=== PATIENT | female | born 1970 | race American Indian/Alaskan Native ===

== ENCOUNTER 2017-11-21 10:34 | Emergency (ER) | payer BC ==
[2017-11-21 12:11] VITALS: BP 112/60
[2017-11-21] MEDS ORDERED: ASPIRIN PO ONE (12:11)
[2017-11-21 12:37] LABS: Mean Corpuscular HGB Conc 27 % (30-34); Platelet Count 311 K/mm3 (140-440); Red Blood Count 4.79 M/mm3 (3.65-5.03)
[2017-11-21 12:39] LABS: Hematocrit 25.9 % (30.3-42.9); Mean Corpuscular Volume 54 fl (79-97)
[2017-11-21 12:40] LABS: Mean Corpuscular Hemoglobin 15 pg (28-32); Red Cell Distribution Width 20.9 % (13.2-15.2)
[2017-11-21 14:32] LABS: Anisocytosis 2+; Band Neutrophils # (Manual) 0.1 K/mm3; Hypochromasia 3+; Total Cells Counted 100
[2017-11-21 14:33] LABS: Ovalocytes 1+; Platelet Estimate Consistent w Auto; Target Cells Few
[2017-11-21 14:34] LABS: BUN/Creatinine Ratio 10; Blood Urea Nitrogen 8 mg/dL (7-17); Calcium 8.6 mg/dL (8.4-10.2); Hemolysis Index 8
== END 2017-11-21 14:30 | disposition left against medical advice (07) ==
LOC: ED 10:34
DX: R07.9 Chest pain, unspecified (principal); Z53.21 Procedure and treatment not carried out due to patient leaving prior to being seen by health care provider
CPT/HCPCS: 36415; 80048; 84484; 85007; 85025; 93005; 93010

== ENCOUNTER 2018-06-21 22:29 | Emergency (ER) | payer BC ==
[2018-06-22 00:04] LABS: Basophils # (Auto) 0.1 K/mm3 (0.0-0.1); Basophils % (Auto) 0.5 % (0.0-1.8); Eosinophils # (Auto) 0.1 K/mm3 (0.0-0.4); Eosinophils % (Auto) 0.7 % (0.0-4.3); Lymphocytes # (Auto) 1.3 K/mm3 (1.2-5.4); Mean Corpuscular HGB Conc 27 % (30-34); Monocytes % (Auto) 9.2 % (0.0-7.3); Platelet Count 275 K/mm3 (140-440); Red Blood Count 4.37 M/mm3 (3.65-5.03)
[2018-06-22 00:12] LABS: Hematocrit 24.2 % (30.3-42.9); Hemoglobin 6.6 gm/dl (10.1-14.3); Mean Corpuscular Hemoglobin 15 pg (28-32); Mean Corpuscular Volume 55 fl (79-97)
[2018-06-22 00:13] LABS: Red Cell Distribution Width 21.3 % (13.2-15.2)
[2018-06-22 00:20] LABS: Alanine Aminotransferase 7 units/L (7-56); Albumin 3.9 g/dL (3.9-5); BUN/Creatinine Ratio 14; Blood Urea Nitrogen 11 mg/dL (7-17); Calcium 8.8 mg/dL (8.4-10.2); Hemolysis Index 0; Lipase 18 units/L (13-60)
[2018-06-22 00:27] LABS: Amorphous Crystals,Urine Few; Bacteria,Urine 3+ /HPF (Negative); Bilirubin,Urine NEG (Negative); Blood,Urine SM (Negative); Color,Urine Yellow (Yellow); Mucus,Urine FEW /HPF; Urobilinogen,Urine < 2.0 mg/dL (<2.0)
[2018-06-22 00:33] LABS: WBC,Urine > 182.0 /HPF (0.0-6.0)
[2018-06-22] MEDS ORDERED: MORPHINE IV ONE (01:11)
[2018-06-22] MEDS ORDERED: ZOFRAN IV ONE (01:11)
[2018-06-22] MEDS ORDERED: ROCEPHIN/NS 1 GM/50 ML 1 GM/50 ML BAG IV ONE (01:11)
[2018-06-22] MEDS ORDERED: NACL 0.9% 1000 ML 1,000 ML IV ONE (01:11)
--- NOTE | 2018-06-22 01:15 | Emergency Department Report ---
ED Abdominal Pain HPI - General Chief Complaint: Abdominal Pain Stated Complaint: SEVERE STOMACH PAIN Time Seen by Provider: 06/22/18 01:06 Source: patient Mode of arrival: Ambulatory Limitations: No Limitations - History of Present Illness Initial Comments: Patient is a 47-year-old female with no significant past medical history. Patient presented to the ER complaining of right lower quadrant abdominal pain for the last 3 days associated with his nausea. Patient stated that she had appendectomy when she was 5 years old. Patient denied any fever, diarrhea or vomiting. MD Complaint: abdominal pain Location: RLQ, suprapubic Radiation: none Migration to: no migration Severity scale (0 -10): 7 Quality: sharp Consistency: constant - Related Data Home Medications Medication Instructions Recorded Confirmed Last Taken No Known Home Medications [No 01/15/15 01/15/15 Unknown Reported Home Medications] Allergies Allergy/AdvReac Type Severity Reaction Status Date / Time No Known Allergies Allergy Verified 01/15/15 10:10 ED Review of Systems ROS: Stated complaint: SEVERE STOMACH PAIN Other details as noted in HPI Comment: All other systems reviewed and negative Constitutional: denies: chills, fever Respiratory: denies: cough, orthopnea, shortness of breath, SOB with exertion, SOB at rest, wheezing Cardiovascular: denies: chest pain, palpitations, dyspnea on exertion Gastrointestinal: abdominal pain, nausea. denies: vomiting, diarrhea, constipation, hematemesis, hematochezia Genitourinary: frequency Musculoskeletal: denies: back pain Neurological: denies: headache, weakness, numbness, paresthesias, confusion, abnormal gait ED Past Medical Hx - Past Medical History Hx Headaches / Migraines: Yes - Surgical History Hx Appendectomy: Yes - Social History Smoking Status: Never Smoker Substance Use Type: None - Medications Home Medications: Home Medications Medication Instructions Recorded Confirmed Last Taken Type No Known Home Medications [No 01/15/15 01/15/15 Unknown History Reported Home Medications] ED Physical Exam - General Limitations: No Limitations General appearance: alert, in no apparent distress - Head Head exam: Present: atraumatic, normocephalic, normal inspection - Eye Eye exam: Present: normal appearance - ENT ENT exam: Present: normal exam, normal orophraynx, mucous membranes moist - Neck Neck exam: Present: normal inspection, full ROM. Absent: tenderness, meningismus - Respiratory Respiratory exam: Present: normal lung sounds bilaterally - Cardiovascular Cardiovascular Exam: Present: regular rate, normal rhythm, normal heart sounds - GI/Abdominal GI/Abdominal exam: Present: soft, tenderness (right lower quadrant tenderness), normal bowel sounds. Absent: distended, guarding, rebound, rigid, organomegaly , mass, bruit, pulsatile mass, hernia - Extremities Exam Extremities exam: Present: normal inspection, full ROM, normal capillary refill. Absent: tenderness, pedal edema, joint swelling, calf tenderness - Back Exam Back exam: Present: normal inspection, full ROM. Absent: tenderness, CVA tenderness (R), CVA tenderness (L), muscle spasm, paraspinal tenderness, vertebral tenderness - Neurological Exam Neurological exam: Present: alert, oriented X3, CN II-XII intact, normal gait, reflexes normal - Skin Skin exam: Present: warm, intact, normal color ED Course Vital Signs 06/21/18 06/22/18 23:11 02:42 Temperature 98.8 F Pulse Rate 88 Respiratory 18 Rate Blood Pressure 126/72 [Right] O2 Sat by Pulse 97 100 Oximetry ED Medical Decision Making - Lab Data Result diagrams: 06/21/18 23:37 06/21/18 23:37 - Radiology Data Radiology results: report reviewed Referring Physician: ARABELLA GREENWOOD Patient Name: MARJORIE CONLEY Date of : 1970 Sex: Female Report Date: 2018-06-22 Report Status: [place] [address] Cat Scan Report Signed Patient: MARJORIE CONLEY MR#: [id number] : 1970 Acct:[id number] Age/Sex: 47 / F ADM Date: 06/21/18 Loc: ED Attending Dr: Ordering Physician: ARABELLA GREENWOOD Date of Service: 06/22/18 Procedure(s): CT abdomen pelvis w con Accession Number(s): [id number] cc: ARABELLA GREENWOOD FINAL REPORT EXAM: CT ABDOMEN PELVIS W CON HISTORY: abdominal pain TECHNIQUE: CT evaluation performed of the abdomen and pelvis following IV and oral contrast administration. Additional axial delayed images were acquired. Coronal and sagittal imaging also provided for interpretation. PRIORS: None. FINDINGS: Lower thorax: The lung bases are clear. The visualized portions of the heart are normal. Liver: No focal lesions identified of the liver. No intrahepatic biliary ductal dilation. Gallbladder/ biliary system: No cholelithiasis. No extrahepatic biliary ductal dilation. Spleen: No splenic lesions are seen. Pancreas: No pancreatic lesions are seen. No pancreatic duct dilation. Kidneys: There is a heterogeneous appearance of the right kidney with peripheral striated decreased enhancement. There is additional mild prominence of the proximal collecting system with suggested increased mucosal enhancement and periureteral stranding (axial images 62-75). There is no focal ureteral calculi identified. Adrenal glands: No adrenal masses. Vasculature: The abdominal and pelvic vasculature demonstrates a normal noncontrasted appearance. Bowel, mesentery, peritoneum: No bowel obstruction. No colonic diverticulosis. The appendix is not visualized, however there is no inflammatory change in the right lower quadrant. No free intra-abdominal fluid or air. Urinary bladder: No calculi or wall thickening. Pelvis: The uterus is markedly enlarged measuring approximately 8.9 cm anterior to posterior by 13.7 cm superior to inferior (sagittal image 129). There are numerous uterine fibroids which results in mass effect on the endometrial stripe and focal peripherally calcified fibroid in the inferior left uterus. No adjacent inflammatory change identified. Abdominal wall: No abdominal wall hernia or subcutaneous findings. Trace free fluid. Bones: Sigmoid thoracolumbar curvature with multilevel endplate degenerative changes. IMPRESSION: Findings suggestive of pyelonephritis given the abnormal enhancement pattern of the right kidney. There is additional mild dilatation of the proximal collecting system with adjacent inflammatory stranding. Additional re-recently passed calculus can have a similar appearance. There is no focal calcification identified within the distal ureter which is decompressed. Correlation with clinical exam requested. Markedly enlarged, fibroid uterus. Non urgent CONTACT FINGER ASSEMBLER consultation requested. Transcribed By: CHONG Dictated By: MARVIN MACIEL DO Electronically Authenticated By: MARVIN MACIEL DO Signed Date/Time: 06/22/18319 DD/ 9 TD/TT: 06/22/18319 - Medical Decision Making Patient stated that she is feeling much better. Her pain is completely resolved. I informed the patient and her about the CT abdomen and pelvis results which showed a right pyelonephritis. I started patient on Levaquin and I advised her to follow-up with her primary care physician in the next 2-3 days. Critical care attestation.: If time is entered above; I have spent that time in minutes in the direct care of this critically ill patient, excluding procedure time. ED Disposition Clinical Impression: Acute pyelonephritis, Abdominal pain Disposition: TO HOME OR SELFCARE Is pt being admited?: No Condition: Stable Instructions: Abdominal Pain (ED), Acute Pyelonephritis (ED), Urinary Tract Infection in Women (ED) Referrals: PRIMARY CARE, [Primary Care Provider] - 3-5 Days
--- NOTE | 2018-06-22 03:27 | Cat Scan Report ---
FINAL REPORT EXAM: CT ABDOMEN PELVIS W CON HISTORY: abdominal pain TECHNIQUE: CT evaluation performed of the abdomen and pelvis following IV and oral contrast administration. Additional axial delayed images were acquired. Coronal and sagittal imaging also provided for interpretation. PRIORS: None. FINDINGS: Lower thorax: The lung bases are clear. The visualized portions of the heart are normal. Liver: No focal lesions identified of the liver. No intrahepatic biliary ductal dilation. Gallbladder/ biliary system: No cholelithiasis. No extrahepatic biliary ductal dilation. Spleen: No splenic lesions are seen. Pancreas: No pancreatic lesions are seen. No pancreatic duct dilation. Kidneys: There is a heterogeneous appearance of the right kidney with peripheral striated decreased enhancement. There is additional mild prominence of the proximal collecting system with suggested increased mucosal enhancement and periureteral stranding (axial images 62-75). There is no focal ureteral calculi identified. Adrenal glands: No adrenal masses. Vasculature: The abdominal and pelvic vasculature demonstrates a normal noncontrasted appearance. Bowel, mesentery, peritoneum: No bowel obstruction. No colonic diverticulosis. The appendix is not visualized, however there is no inflammatory change in the right lower quadrant. No free intra-abdominal fluid or air. Urinary bladder: No calculi or wall thickening. Pelvis: The uterus is markedly enlarged measuring approximately 8.9 cm anterior to posterior by 13.7 cm superior to inferior (sagittal image 129). There are numerous uterine fibroids which results in mass effect on the endometrial stripe and focal peripherally calcified fibroid in the inferior left uterus. No adjacent inflammatory change identified. Abdominal wall: No abdominal wall hernia or subcutaneous findings. Trace free fluid. Bones: Sigmoid thoracolumbar curvature with multilevel endplate degenerative changes. IMPRESSION: Findings suggestive of pyelonephritis given the abnormal enhancement pattern of the right kidney. There is additional mild dilatation of the proximal collecting system with adjacent inflammatory stranding. Additional re-recently passed calculus can have a similar appearance. There is no focal calcification identified within the distal ureter which is decompressed. Correlation with clinical exam requested. Markedly enlarged, fibroid uterus. Non urgent SURVEY COMPILER consultation requested.
[2018-06-22 04:28] VITALS: BP 102/55
== END 2018-06-22 04:31 | disposition home or self-care (01) ==
LOC: ED 22:29
DX: N12 Tubulo-interstitial nephritis, not specified as acute or chronic (principal); G43.909 Migraine, unspecified, not intractable, without status migrainosus
CPT/HCPCS: 36415; 74177; 80053; 81001; 83690; 84703; 85025; 96365; 96375; 99284; J0696; J2270; J2405; J7030; Q9967